=== PATIENT | female | born 1985 | race Caucasian/White ===

== ENCOUNTER 2023-12-17 19:46 | Emergency (ER) | payer MEDICAID, SELFPAY ==
[2023-12-17 19:58] VITALS: BP 135/95; PULSE 75; RESP 16; TEMP 36.8; O2SAT 98; BMI 35.9
--- NOTE | 2023-12-17 20:00 | ED.DENTAL ---
HPI - Dental/Oral General Chief complaint: Dental/Oral Stated complaint: rt side back tooth pain Time Seen by Provider: 12/17/23 20:00 Source: patient Mode of arrival: ambulatory Limitations: no limitations History of Present Illness ED Provider: Loyda Freitas PA-C HPI Narrative: 38 yo female presents to the ER for evaluation of 2 weeks of right upper molar pain. She states the pain has been keeping her up at night. Worse with chewing. No facial swelling but the pain radiates up into her face. She is not taking any mediation for the pain. She is on a wait list with a local dentist. She has not seen one in years. MD Complaint: tooth pain Location: Tooth # (1) Onset (ago): week(s) (2) Duration: constant Severity: severe Severity scale (1-10): 10 Relieving factors: nothing Exacerbating factors: chewing Context: poor dental care Treatment prior to arrival: none Related Data Previous Rx's ?Medication ?Instructions ?Recorded acetaminophen 500 mg tablet 1,000 mg (2 x 500 mg) PO Q6H PRN 12/17/23 (Tylenol Extra Strength) fever or pain #30 tabs amoxicillin 875 mg-potassium 1 tab PO BID #20 tabs 12/17/23 clavulanate 125 mg tablet ibuprofen 600 mg tablet 600 mg PO Q8H PRN pain #20 tabs 12/17/23 Allergies Allergy/AdvReac Type Severity Reaction Status Date / Time No Known Allergies Allergy Verified 12/17/23 20:00 Review of Systems Review of Systems: Yes all other systems are reviewed and are negative PMFSH Social History Social History Do you have a plan to hurt others: No Plan Physical Exam Vital Signs: Vital Signs: Last Vital Signs Temp 98.3 F 12/17/23 19:58 Pulse 75 12/17/23 19:58 Resp 16 12/17/23 19:58 BP 135/95 H 12/17/23 19:58 Pulse Ox 98 12/17/23 19:58 O2 Del Method Room Air 12/17/23 19:58 BMI result Body Mass Index 35.9 Appearance: Alert. Oriented X3. No acute distress. HEENT: normal external inspection. face is symmetrical without any swelling or erythema. no trismus. right upper molars teeth 1 and 2 are tender to palpation without associated mobility, gingiva assocaited is erythematous and tender without fluctuance or significant swelling. pharynx is otherwise normal. Neck: normal to inspectio, no anterior neck swelling CVS: Normal heart rate and rhythm. Pulses normal. Respiratory: No respiratory distress. Skin: Skin warm and dry. Normal skin color. Normal skin turgor. No rashes. Extremities: normal inspection x4 Neuro: Oriented X 3. grossly normal, nonfocal Medical Decision Making Medical Decision Making MDM Narrative: 38 yo female with no current dental care presents for evaluation of 2 weeks of right upper dental pain. no facial swelling and no trisums on exam. no evidence of drainable abscess today. will start empiric antibiotics, NSAIDS and tylenol will provide emergency local dentist list encouraged follow up with dentist as soon as possible. return precautions were discussed. stable for d/c home Differential Diagnosis Differential Diagnoses: The differential diagnosis associated with the presentation includes toothache, dental abscess, dental trauma, gingivitis, decay, caries Prescription Management I considered prescription management with: Pain Medication and Antibiotic Social Determinants Patient?s care significantly limited by Social Determinants of Health including: Other Social Determinant of Health (no access to medical or dental care) Critical Care Time Critical Care Time Critical Care Time: No Discharge Plan Discharge Clinical Impression: Toothache Patient Disposition: Home, Self-Care Instructions: Toothache (ED) Additional Instructions: Take the prescribed antibiotics as directed, complete the entire course and do not miss any doses Take the prescribed ibuprofen and acetaminophen alternating throughout the day to help with the pain Follow up with a dentist as soon as possible - call the dentists below to see if you can be seen soon Call or visit any of the clinics below to establish with a dentist: [facility] [address] [place] [address] [facility] [address] [place] [address] [facility] [address] [facility], [address] [address] [place] [address] [facility] [address] [place] [id number] [facility] [address] [place] [address] [place] [address] [place] [address] Prescriptions: New amoxicillin-pot clavulanate 875-125 mg tablet 1 tab PO BID Qty: 20 0RF ibuprofen 600 mg tablet 600 mg PO Q8H PRN (Reason: pain) Qty: 20 0RF acetaminophen [Tylenol Extra Strength] 500 mg tablet 1,000 mg PO Q6H PRN (Reason: fever or pain) Qty: 30 0RF
[2023-12-17 20:10] VITALS: BP 135/95; PULSE 75; RESP 16; TEMP 36.8; O2SAT 98
== END 2023-12-17 20:16 | disposition home or self-care (01) ==
PROVIDERS: Emergency Provider Internal Medicine
DX: K08.89 Other specified disorders of teeth and supporting structures (principal)
CPT/HCPCS: 99283